=== PATIENT | female | born 1955 | race Caucasian/White ===

== ENCOUNTER 2019-05-14 13:26 | Emergency (ER) | payer OTHER ==
[2019-05-14 13:43] VITALS: BMI 23.6
--- NOTE | 2019-05-14 14:31 | PDOC ---
History of Present Illness - General Chief Complaint: Shortness of Breath Stated Complaint: SOB Time Seen by Provider: 05/14/19 14:03 Past History - Psycho Social/Smoking Cessation Hx Smoking History: Never smoked Information on smoking cessation initiated: No Hx Alcohol Use: No Drug/Substance Use Hx: No *Physical Exam - Vital Signs Last Vital Signs Temp Pulse Resp BP Pulse Ox 97.7 F 88 17 140/68 95 05/14/19 13:40 05/14/19 13:40 05/14/19 13:40 05/14/19 13:40 05/14/19 13:40 Discharge - Follow up/Referral Referrals: Julio Philippe MD [Primary Care Provider] - - Patient Discharge Instructions - Post Discharge Activity
--- NOTE | 2019-05-14 14:42 | PDOC ---
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 Denies ALTAMIRANO, orthopnea. Denies f/c, cp/palpitations, cough, sore throat, rhinorrhea, sick contacts. Sx first noticed at rest. Denies GI/ sx. No recent travel, surgeries, immobilization, OCP/hormone use, no h/o VTE or active malignancies. PCP Robert Philippe Denies tobacco, etoh Past History - Past Medical History Allergies/Adverse Reactions: Allergies Allergy/AdvReac Type Severity Reaction Status Date / Time No Known Allergies Allergy Verified 05/14/19 14:52 Home Medications: Ambulatory Orders NK [No Known Home Medication] 05/14/19 - Psycho Social/Smoking Cessation Hx Smoking History: Never smoked Information on smoking cessation initiated: No Hx Alcohol Use: No Drug/Substance Use Hx: No Review of Systems - Review of Systems Able to Perform ROS?: Yes Comments:: 05/14/19 21:18 CONSTITUTIONAL: Denies F / C HEENT: endorses mild congestion. Denies headache, lightheadedness, dizziness, sore throat, rhinorrhea RESP: endorses resting SOB. Denies cough, orthopnea, ALTAMIRANO CARD: Denies chest pain GI: Denies N / V / D, abdominal pain, bloody stool, inability to tolerate PO : Denies dysuria, hematuria, frequency SKIN: Denies rashes NEURO: Denies numbness, tingling, weakness MSK: Denies back pain Is the patient limited Icelandic proficient: Yes *Physical Exam - Vital Signs Last Vital Signs Temp Pulse Resp BP Pulse Ox 97.7 F 88 17 140/68 95 05/14/19 13:40 05/14/19 13:40 05/14/19 13:40 05/14/19 13:40 05/14/19 13:40 - Physical Exam 05/14/19 21:18 GEN: Well appearing, NAD, comfortable. AAOx3. HEENT: NC/AT, EOMI, PERRL. No facial asymmetry. Moist mucous membranes. Normal voice. Supple neck w/ FROM. CV: S1/S2, RRR, no m/r/g LUNG: CTAB, no wheezes, crackles, rales, rhonchi. GI: Soft, ndnt, +BS, no guarding, no rebound. No masses. MSK: No calf TTP. No LE edema. No obvious deformities of all extremities. SKIN: Warm, dry, no rashes appreciated. PSYCH: Normal mood and affect. NEURO: Moving all extremities well. ambulates w/ normal gait ED Treatment Course - LABORATORY CBC & Chemistry Diagram: 05/14/19 14:45 05/14/19 14:45 - RADIOLOGY Radiology Studies Ordered: Category Date Time Status CHEST PA & LAT [RAD] Stat Radiology 05/14/19 14:31 Ordered Medical Decision Making - Medical Decision Making 05/14/19 14:41 63F PMH HLD presenting with 3 days of persistent baseline difficulty breathing. CTAB. SaO2 95% RA. No respiratory distress. PERC negative except age; low suspicion of DVT/PE. Considering URI (viral >> bacterial). - labs - ekg - cxr 05/14/19 16:31 d/w Dr. Donovan Philippe - amenable to plan of f/u on Tuesday 05/1605/14/19 16:52 labs reviewed and reassuring CXR w/o obvious acute pathology DC home w/ pcp f/u Discharge - Discharge Information Problems reviewed: Yes Clinical Impression/Diagnosis: Difficulty breathing Condition: Stable Disposition: HOME - Admission No - Follow up/Referral Referrals: Julio Philippe MD [Primary Care Provider] - - Patient Discharge Instructions Patient Printed Discharge Instructions: DI for Shortness of Breath Additional Instructions: Your chest x-ray, EKG, and lab work was reassuring. We spoke to Dr. Philippe, he wants to see you in the office on Friday (05/17/19). Follow up with your Primary Care Doctor on Friday05/17/19. Return to the Emergency Department if you experience: - worsening shortness of breath - chest pain - fevers - swelling of the mouth, tongue - anything that concerns you Clemente radiografa de trax, electrocardiograma y anlisis de laboratorio fueron tranquilizadores. Hablamos con el Dr. Philippe, quiere verte en la oficina el (11/11/19). Nyla un seguimiento con clemente mdico de atencin primaria el 05/17/19. Regrese al Departamento de Emergencias si experimenta: - empeoramiento de la dificultad para respirar - Dolor de pecho - fiebres - hinchazn de la boca, lengua - cualquier cosa que te preocupe - Post Discharge Activity
[2019-05-14 15:00] LABS: BASO % 0.8 % (0-2.0); EOS % 4.9 % (0-4.5); HEMATOCRIT 40.2 % (32.4-45.2); HEMOGLOBIN 13.5 GM/dL (10.7-15.3); LYMPH % 33.9 % (8-40); MCH 32.1 pg (25.7-33.7); MCHC 33.7 g/dl (32.0-36.0); MEAN CELL VOLUME 95.3 fl (80-96); MEAN PLT VOLUME 8.7 fl (7.5-11.1); MONO % 9.2 % (3.8-10.2); NEUT % 51.2 % (42.8-82.8); PLATELET COUNT 324 K/MM3 (134-434); RBC 4.21 M/mm3 (3.60-5.2); RDW 12.7 % (11.6-15.6); WHITE BLOOD COUNT 8.6 K/mm3 (4.0-10.0)
[2019-05-14 15:33] LABS: ALBUMIN 3.9 g/dl (3.4-5.0); ALK PHOS 93 U/L (45-117); ANION GAP 6 MMOL/L (8-16); BILIRUBIN,TOTAL 0.2 mg/dL (0.2-1); BLOOD UREA NITROGEN 20.2 mg/dL (7-18); CALCIUM 9.4 mg/dL (8.5-10.1); CHLORIDE 103 mmol/L (98-107); CO2 30 mmol/L (21-32); CREATININE 0.9 mg/dL (0.55-1.3); GLUCOSE,RANDOM 96 mg/dL (74-106); N-TERMINAL BNP 16.1 pg/ml (5-125); POTASSIUM 4.3 mmol/L (3.5-5.1); SGOT/AST 21 U/L (15-37); SGPT/ALT 25 U/L (13-61); SODIUM 139 mmol/L (136-145); TOT PROT 7.4 g/dl (6.4-8.2)
--- NOTE | 2019-05-14 16:21 | PDOC ---
Documentation entered by Namita Johnston SCRIBE, acting as scribe for Ron Blake MD. Ron Blake MD: This documentation has been prepared by the Vickie espinal Nirvannie, SCRIBE, under my direction and personally reviewed by me in its entirety. I confirm that the documentation accurately reflects all work, treatment, procedures, and medical decision making performed by me. Attending Attestation - Resident Resident Name: SaeDerik - ED Attending Attestation I have performed the following: I have examined & evaluated the patient, The case was reviewed & discussed with the resident, I agree w/resident's findings & plan, Exceptions are as noted - HPI HPI: 05/14/19 15:35 CC: Persistent shortness of breath with associated congestion. HPI: The patient is a 63 year old female, with a significant past medical history of HLD, who presents to the emergency department with 3 days persistent shortness of breath with associated congestion. Allergies: NKDA Primary Care Physician: Dr. Robert Philippe - Physicial Exam PE: 05/14/19 16:20 Vitals: Triage Vital signs reviewed General Appearance: No acute distress, well nourished well developed, Head: Atraumatic, Neck: Supple; no Nucal rigidity Chest Wall: Nontender Cardiac: Regular rate and rhythym, no murmurs, no rubs, no gallops, Lungs: Clear to auscultation bilateral, good air movement bilaterally, Abdomen: Soft, non distended, normal bowel sounds, non tender to palpation Extremities: Full range of motion to all extremities, no cyanosis, clubbing, or edema Skin: Warm and dry, no rashes or lesions, no rash, no petechiae Psych: Normal mood, normal affect - Medical Decision Making 05/14/19 15:35 63 year old female, with a significant past medical history of HLD, who presents to the emergency department with 3 days persistent shortness of breath with associated congestion. Plan is: Cardiac Profile CBC CMP CXR EKG BNP 05/14/19 16:20 Sinus rhythm [address] elevations or T wave inversions no evidence of right axis deviation [id number] ultrasound demonstrates no effusion normal EF No fever no white count no travel no sick contacts no PE DVT risk factors low risk by Wells criteria with subjective shortness of breath no tachypnea no tachycardia no hypoxia Patient is well-appearing no clear-cut etiology for patient symptomatology will discuss with primary care provider likely outpatient follow-up Findings, the need for follow-up and strict return instructions discussed with patient.
[2019-05-14 16:37] VITALS: BP 118/65; PULSE 77; TEMP 98.4
--- NOTE | 2019-05-15 10:30 | EKG ---
Test Reason : Blood Pressure : / mmHG Vent. Rate : 079 BPM Atrial Rate : 079 BPM P-R Int : 146 ms QRS Dur : 100 ms QT Int : 394 ms P-R-T Axes : 052 025 034 degrees QTc Int : 451 ms NORMAL SINUS RHYTHM LOW VOLTAGE QRS BORDERLINE ECG NO PREVIOUS ECGS AVAILABLE Confirmed by Tim Kern MD ([id number]) on 05/15/2019 10:29:40 AM Referred By: Confirmed By:Tim Kern MD
== END 2019-05-14 17:07 | disposition home or self-care (01) ==
LOC: JER 13:26
DX: R06.00 Dyspnea, unspecified (principal); E78.5 Hyperlipidemia, unspecified
CPT/HCPCS: 36415; 71046-TC-FY; 80053; 82550; 83880; 84484; 85025; 93005; 93010; 99285-25

== ENCOUNTER 2021-09-28 08:21 | Emergency (ER) | payer OTHER ==
[2021-09-28 08:48] VITALS: BP 116/71; PULSE 88; TEMP 98.1; BMI 21.6
[2021-09-28] MEDS ORDERED: ONDANSETRON 4 MG/2 ML VIAL IVPUSH ONE (09:17)
[2021-09-28] MEDS ORDERED: SODIUM CHLORIDE 0.9% 500 ML INFUS.BAG IV ONE (09:17)
[2021-09-28] MEDS ORDERED: MAG HYDROX/AL HYDROX/SIMETH -MYLANTA- ORAL SUSPENSION PO ONE (09:20)
[2021-09-28] MEDS ORDERED: MAG HYDROX/AL HYDROX/SIMETH 30 ML UNIT-DOSE CUP ONE (09:55)
[2021-09-28] MEDS ORDERED: ONDANSETRON 4 MG/2 ML VIAL ONE (09:55)
[2021-09-28 10:20] LABS: BASO % 0.4 % (0-2.0); EOS % 1.3 % (0-4.5); HEMATOCRIT 44.2 % (32.4-45.2); HEMOGLOBIN 14.7 GM/dL (10.7-15.3); LYMPH % 3.6 % (8-40); MCH 31.6 pg (25.7-33.7); MCHC 33.2 g/dl (32.0-36.0); MEAN CELL VOLUME 95.2 fl (80-96); MEAN PLT VOLUME 8.9 fl (7.5-11.1); MONO % 5.8 % (3.8-10.2); NEUT % 88.9 % (42.8-82.8); PLATELET COUNT 303 10^3/uL (134-434); RBC 4.64 M/mm3 (3.60-5.2); RDW 12.9 % (11.6-15.6); WHITE BLOOD COUNT 12.3 K/mm3 (4.0-10.0)
[2021-09-28 10:49] LABS: ALBUMIN 4.2 g/dl (3.4-5.0); BLOOD UREA NITROGEN 19.1 mg/dL (7-18)
[2021-09-28 10:52] LABS: CREATININE 0.8 mg/dL (0.55-1.3)
[2021-09-28 10:54] LABS: BILIRUBIN,TOTAL 0.4 mg/dL (0.2-1); TOT PROT 7.7 g/dl (6.4-8.2)
== END 2021-09-28 12:10 | disposition home or self-care (01) ==
LOC: JER 08:21
PROC: 3E033GC Introduction of Other Therapeutic Substance into Peripheral Vein, Percutaneous Approach (ICD-10-PCS; principal; 2021-09-28)
DX: K52.9 Noninfective gastroenteritis and colitis, unspecified (principal)
CPT/HCPCS: 36415; 80053; 85025; 99284-25

== ENCOUNTER → 2021-12-27 | Day surgery (SDC) | payer MEDICARE, OTHER | END | disposition home or self-care (01) | LOC: JRADIR 08:52 | PROVIDERS: ATTEND Internal Medicine Endocrinology, Diabetes & Metabolism | PROC: 0G9G3ZX Drainage of Left Thyroid Gland Lobe, Percutaneous Approach, Diagnostic (ICD-10-PCS; principal; 2021-12-27) | DX: E04.1 Nontoxic single thyroid nodule (principal) | CPT/HCPCS: 10005; 76942; 88173; 88305-TC ==

== ENCOUNTER 2022-07-30 04:57 | Day surgery (SDC) | payer MEDICARE, OTHER ==
[2022-07-26 13:59] VITALS: BMI 23.3
[2022-07-30 11:14] VITALS: TEMP 98
[2022-07-30 11:17] VITALS: BP 115/66; PULSE 74; RESP 15
== END 2022-07-30 11:21 | disposition home or self-care (01) ==
LOC: JASU-ENDO 04:57
PROVIDERS: ATTEND Student in an Organized Health Care Education/Training Program
PROC: 0DB78ZX Excision of Stomach, Pylorus, Via Natural or Artificial Opening Endoscopic, Diagnostic (ICD-10-PCS; 2022-07-30)
PROC: 0DB68ZX Excision of Stomach, Via Natural or Artificial Opening Endoscopic, Diagnostic (ICD-10-PCS; 2022-07-30)
PROC: 0DB48ZX Excision of Esophagogastric Junction, Via Natural or Artificial Opening Endoscopic, Diagnostic (ICD-10-PCS; 2022-07-30)
PROC: 0DB98ZX Excision of Duodenum, Via Natural or Artificial Opening Endoscopic, Diagnostic (ICD-10-PCS; principal; 2022-07-30 10:30)
DX: K21.00 Gastro-esophageal reflux disease with esophagitis, without bleeding (principal); K44.9 Diaphragmatic hernia without obstruction or gangrene; K22.5 Diverticulum of esophagus, acquired; K29.50 Unspecified chronic gastritis without bleeding; B96.81 Helicobacter pylori [H. pylori] as the cause of diseases classified elsewhere
CPT/HCPCS: 88305-TC; 88342-TC

== ENCOUNTER 2024-05-14 05:14 | Day surgery (SDC) | payer OTHER ==
[2024-05-12 14:23] VITALS: BMI 22.9
[2024-05-14] MEDS ORDERED: DEXAMETHASONE SOD PHOSPHATE 10 MG/1 ML VIAL ONE (07:31)
[2024-05-14] MEDS ORDERED: LIDOCAINE HCL/PF 1% SDV 5ML VIAL ONE (07:31)
[2024-05-14 08:08] VITALS: RESP 18
[2024-05-14] MEDS ORDERED: ACETAMINOPHEN 500 MG TABLET (FP) PO PRN (09:00)
[2024-05-14] MEDS: LIDOCAINE HCL 1% PRESERVATIVE FREE - 30ML VIAL IJ ONE ×3 (09:23)
[2024-05-14] MEDS: IOHEXOL 180 MG/1 ML ML IJ ONE ×5 (09:24→09:32)
[2024-05-14] MEDS: DEXAMETHASONE SOD PHOSPHATE 10 MG/1 ML VIAL IVPUSH ONE ×3 (09:30→09:32)
[2024-05-14 10:42] VITALS: TEMP 97.9
[2024-05-14 12:03] VITALS: BP 149/89; PULSE 70
== END 2024-05-14 10:10 | disposition home or self-care (01) ==
LOC: JASU-SURG 05:14
PROVIDERS: ATTEND Pain Medicine Pain Medicine
PROC: 3E0R3BZ Introduction of Anesthetic Agent into Spinal Canal, Percutaneous Approach (ICD-10-PCS; 2024-05-14)
PROC: 3E0R33Z Introduction of Anti-inflammatory into Spinal Canal, Percutaneous Approach (ICD-10-PCS; principal; 2024-05-14 09:30)
DX: M54.16 Radiculopathy, lumbar region (principal)
CPT/HCPCS: 76000-TC-FY; J1100